=== PATIENT | female | born 1990 | race Caucasian/White ===

== ENCOUNTER → 2023-04-10 15:41 | Outpatient (BNVA) | payer BC, SELFPAY | PROVIDERS: Visit Provider Nurse Practitioner Women's Health | DX: Z12.4 Encounter for screening for malignant neoplasm of cervix (principal); Z13.0 Encounter for screening for diseases of the blood and blood-forming organs and certain disorders involving the immune mechanism; R68.89 Other general symptoms and signs; Z13.1 Encounter for screening for diabetes mellitus; Z13.228 Encounter for screening for other metabolic disorders; Z13.220 Encounter for screening for lipoid disorders; Z01.419 Encounter for gynecological examination (general) (routine) without abnormal findings | CPT/HCPCS: 80053; 80061; 83036; 84443; 85025; 87624 ==

== ENCOUNTER 2023-07-07 09:07 | Emergency (ER) | payer BC, SELFPAY ==
[2023-07-07] VITALS (7 sets, daily range): BP systolic 95–109; BP diastolic 63–73; PULSE 83–95; RESP 16; TEMP 36.8; O2SAT 96–98; BMI 24.0
--- NOTE | 2023-07-07 09:27 | XRR_ITS ---
PROCEDURE INFORMATION: Exam: XR Chest Exam date and time: 07/07/2023 9:33 AM Age: 32 years old Clinical indication: Cough and dyspnea; Additional info: Dyspnea/cough TECHNIQUE: Imaging protocol: Radiologic exam of the chest. Views: 1 view. COMPARISON: No relevant prior studies available. FINDINGS: Lungs: Unremarkable. No consolidation. Pleural spaces: Unremarkable. No pleural effusion. No pneumothorax. Heart/Mediastinum: Unremarkable. No cardiomegaly. Bones/joints: Unremarkable. XR/XR chest 1V portable [id number] IMPRESSION: The findings are normal.
--- NOTE | 2023-07-07 09:35 | W.ED.SYNCOPE ---
HPI - Syncope General: Chief Complaint: Syncope Stated Complaint: vomiting, passed out multiple times Time Seen by Provider: 07/07/23 09:26 Source: patient and family Mode of arrival: ambulatory History of Present Illness: 32-year-old female presents to the emergency room with complaints of nausea and vomiting and then a syncopal episode this morning when she first. She is unsure if she might be . She is not on any regular medication denies any medication on a temp cough cramps no abdominal pain she does have some scratching and bruising from playing with a rather large dog they have at home. No hematochezia melena hematemesis or coffee-ground emesis. Discomfort in the abdomen is diffuse no focal areas she has previously had an appendectomy no other abdominal surgeries MD complaint: loss of consciousness Associated symptoms: Deny abdominal pain, chest pain or fever(s) Treatments prior to arrival: none Review of Systems Const: Denies: fever(s) or chills Card: Denies: chest pain Resp: Denies: dyspnea GI: Denies: abdominal pain : Denies: dysuria, urinary frequency or urinary urgency Musc: Denies: neck pain or back pain Skin/Breast: Denies: rash PFSH ED PFSH: Medical History No pertinent past medical history neghx: htn,dm,thyroid,dvt/pe PCP: None Surgical History History of appendectomy Family History Father Hyperlipidemia Hypertension Stroke Grandfather Hyperlipidemia Hypertension Stroke Mother Hypertension Denies family history of Cervical cancer Ovarian cancer Prostate cancer Diabetes Heart disease Breast cancer Uterine cancer Thyroid disease Female Reproductive History: Date of last menstrual period: 06/14/23 Physical Exam Const: COMMON NORMALS: no acute distress GENERAL APPEARANCE: cooperative and comfortable ORIENTATION/CONSCIOUSNESS: Yes awake, Yes oriented to person, Yes oriented to place and Yes oriented to time HENMT: COMMON NORMALS: normocephalic, atraumatic and hearing grossly normal bilaterally HEAD & SCALP: normocephalic and atraumatic Resp: COMMON NORMALS: normal respiratory effort, No retractions, No use of accessory muscles and clear to auscultation bilaterally AUSCULTATION: clear to auscultation bilaterally Cardio: COMMON NORMALS: regular rate, regular rhythm and No murmurs present (Cardio) RATE: regular rate RHYTHM: regular rhythm GI: COMMON NORMALS: Soft to palpation and No hepatosplenomegaly present AUSCULTATION: Yes normoactive bowel sounds PALPATION: Yes Soft to palpation, No Tenderness to palpation present (GI), No Guarding due to palpation present (GI) and Yes No hepatosplenomegaly present Extremity: COMMON NORMALS: normal to inspection, capillary refill normal, no clubbing, cyanosis or edema, no calf tenderness and no pedal edema Neuro: SENSORIUM/ORIENTATION: Yes oriented to person, Yes oriented to place and Yes oriented to time Skin: COMMON NORMALS: no rashes or lesions noted GENERAL SKIN EXAM: no rashes or lesions noted Course Vital Signs: Vital signs: Vital Signs Temperature 98.3 F 07/07/23 09:15 Pulse Rate 90 07/07/23 12:41 Respiratory Rate 16 07/07/23 09:15 Blood Pressure 109/63 07/07/23 12:41 Pulse Oximetry 96 07/07/23 12:41 Oxygen Delivery Me thod Room Air 07/07/23 11:30 MDM - Syncope Medical Decision Making Improved with fluids. Discharge home clear liquid diet antiemetics as needed. Will check a COVID as well contact with results. Medical Records I reviewed the patient's medical records. Lab Data I reviewed the patient's lab results. 07/07/23 09:30 07/07/23 09:30 Radiology Impressions Chest X-Ray 07/07/23 09:27 IMPRESSION: The findings are normal. Laboratory Results WBC 18.90 10^3/uL (3.29-11.43) H 07/07/23 09:30 RBC 4.87 10^6/uL (3.85-5.65) 07/07/23 09:30 Hgb 13.50 g/dL (11.27-16.99) 07/07/23 09:30 Hct 40.5 % (36-47) 07/07/23 09:30 MCV 83.2 fl (85-98) L 07/07/23 09:30 MCH 27.7 pg (27-33) 07/07/23 09:30 MCHC 33.3 g/dL (30-55) 07/07/23 09:30 RDW 14.3 % (12.1-15.1) 07/07/23 09:30 Plt Count 278 10^3/cmm (157-399) 07/07/23 09:30 MPV 10.5 fL (7.4-10.4) H 07/07/23 09:30 Neut % (Auto) 95.4 % 07/07/23 09:30 Lymph % (Auto) 2.0 % 07/07/23 09:30 [place] % (Auto) 2.0 % 07/07/23 09:30 Eos % (Auto) 0.0 % 07/07/23 09:30 Baso % (Auto) 0.2 % 07/07/23 09:30 Neut # (Auto) 18.04 10^3/uL (1.8-7.7) H 07/07/23 09:30 Lymph # (Auto) 0.4 10^3/uL (0.8-4.8) L 07/07/23 09:30 [place] # (Auto) 0.4 10^3/uL (0.2-0.9) 07/07/23 09:30 Eos # (Auto) 0.0 10^3/uL (0.0-0.8) 07/07/23 09:30 Baso # (Auto) 0.0 10^3/uL (0.0-0.1) 07/07/23 09:30 Nucleated RBC % (auto) 0 % 07/07/23 09:30 Nucleated RBCs # 0.0 /100WBC 07/07/23 09:30 Sodium 135 mmol/L (136-145) L 07/07/23 09:30 Potassium 4.0 mmol/L (3.5-5.1) 07/07/23 09:30 Chloride 101 mmol/L (98-107) 07/07/23 09:30 Carbon Dioxide 24 mmol/L (22-29) 07/07/23 09:30 Anion Gap 14.0 (5-19) 07/07/23 09:30 BUN 11 mg/dL (6-20) 07/07/23 09:30 Creatinine 0.6 mg/dL (0.5-0.9) 07/07/23 09:30 GFR Calculation 115.1 mL/min (90-130) 07/07/23 09:30 Glucose 145 mg/dL (65-115) H 07/07/23 09:30 Calculated Osmolality 282 mOsm/kg (285-295) L 07/07/23 09:30 Calcium 9.2 mg/dL (8.5-10.5) 07/07/23 09:30 Magnesium 1.8 mg/dL (1.7-2.3) 07/07/23 09:30 Total Bilirubin 0.6 mg/dL (0.15-1.2) 07/07/23 09:30 AST 19 U/L (0-32) 07/07/23 09:30 ALT 14 U/L (0-33) 07/07/23 09:30 Alkaline Phosphatase 51 U/L (35-105) 07/07/23 09:30 Total Protein 7.0 g/dL (6.6-8.7) 07/07/23 09:30 Albumin 4.5 g/dL (3.5-5.2) 07/07/23 09:30 Globulin 2.5 g/dL (1.3-4.6) 07/07/23 09:30 HCG, Qual Negative (Negative) 07/07/23 09:30 Urine Color Yellow (Yellow) 07/07/23 11:35 Urine Appearance Clear (CLEAR) 07/07/23 11:35 Urine pH 8 (5-7) H 07/07/23 11:35 Ur Specific [place] 1.015 (1.005-1.030) 07/07/23 11:35 Urine Protein Neg (Negative) 07/07/23 11:35 Urine Glucose (UA) Norm (Normal) 07/07/23 11:35 Urine Ketones 1+ (Negative) H 07/07/23 11:35 Urine Blood Neg (Negative) 07/07/23 11:35 Urine Nitrate Negative (Negative) 07/07/23 11:35 Urine Bilirubin Neg (Negative) 07/07/23 11:35 Prot Sulfosalicylic Acd Negative (Negative) 07/07/23 11:35 Urine Urobilinogen Norm mg/dL (Negative) 07/07/23 11:35 Ur Leukocyte Esterase Negative (Negative) 07/07/23 11:35 All radiology interpretation(s) finalized by discharge Discharge Plan Discharge Patient Disposition: Home Clinical Impression: Orthostatic hypotension, Gastroenteritis Condition: Stable Prescriptions: New ondansetron HCl 4 mg tablet 4 mg PO Q6H PRN (Reason: nausea and vomiting) Qty: 20 0RF No Action Midol 500-25 mg tablet 1 tab PO Q6H PRN (Reason: Pain) acetaminophen 500 mg Tablet 1,000 mg PO Q6H PRN (Reason: Pain) Discharge Orders: Discharge ED (Routine); Ordered 07/07/23 Ordered By: Woody Miller Discharge Diet: Clear Liquid Discharge Activity: Increase activity as tolerated Patient Instructions: Opioid Safety, Pain Management Coding Level of Care Code ED Senior Mechanical Project Manager for Srinivas Ramos
[2023-07-07 09:41] LABS: Basophils % 0.2 %; Hematocrit 40.5 % (36-47); Lymphocytes # 0.4 10^3/uL (0.8-4.8); Mean Corpuscular HGB Conc 33.3 g/dL (30-55); Mean Corpuscular Hemoglobin 27.7 pg (27-33); Mean Corpuscular Volume 83.2 fl (85-98); Mean Platelet Volume 10.5 fL (7.4-10.4); Monocytes # 0.4 10^3/uL (0.2-0.9); Neutrophils # 18.04 10^3/uL (1.8-7.7); Neutrophils % 95.4 %; Nucleated Red Blood Cells % 0 %; Platelet Count 278 10^3/cmm (157-399); Red Blood Count 4.87 10^6/uL (3.85-5.65); Red Cell Distribution Width 14.3 % (12.1-15.1)
[2023-07-07 10:02] LABS: Alanine Aminotransferase 14 U/L (0-33); Albumin Level 4.5 g/dL (3.5-5.2); Alkaline Phosphatase 51 U/L (35-105); Aspartate Amino Transferase 19 U/L (0-32); Blood Urea Nitrogen 11 mg/dL (6-20); Calcium 9.2 mg/dL (8.5-10.5); Carbon Dioxide 24 mmol/L (22-29); Chloride 101 mmol/L (98-107); Globulin 2.5 g/dL (1.3-4.6); Glomerular Filtration Rate 115.1 mL/min (90-130); Glucose 145 mg/dL (65-115); Magnesium 1.8 mg/dL (1.7-2.3); Osmolality Calculated 282 mOsm/kg (285-295); Sodium 135 mmol/L (136-145); Total Bilirubin 0.6 mg/dL (0.15-1.2)
[2023-07-07] MEDS: sodium chloride 0.9% 1,000 ML 999 ML IV (10:03)
[2023-07-07 10:26] LABS: HCG, Serum Qual Negative (Negative)
[2023-07-07 11:44] LABS: Add Urine Microscopic? NO; Charge for UA Resulting for Rev
[2023-07-07 12:10] LABS: Bilirubin Urine Neg (Negative); Blood Urine Neg (Negative); Glucose Urine UA Norm (Normal); Ketones Urine 1+ (Negative); Leukocyte Esterase Urine Negative (Negative); Nitrate Urine Negative (Negative); Protein Urine Neg (Negative); Specific Gravity, Urine 1.015 (1.005-1.030); Sulfosalicylic Acid Urine Negative (Negative); Urine Appearance Clear (CLEAR); Urine Color Yellow (Yellow); Urobilinogen Urine Norm (Negative); pH Urine 8 (5-7)
[2023-07-07 14:43] LABS: Adenovirus Not Detected (NOT DETECT); Chlamydia Pneumoniae Not Detected (NOT DETECT); Coronavirus 229E,HKU1,NL63,OC4 Not Detected (NOT DETECT); Human Metapneumovirus Not Detected (NOT DETECT); Human Rhinovirus/Enterovirus Not Detected (NOT DETECT); Influenza A Not Detected (NOT DETECT); Influenza A H1 Not Detected (NOT DETECT); Influenza A H1-2009 Not Detected (NOT DETECT); Influenza A H3 Not Detected (NOT DETECT); Influenza B Not Detected (NOT DETECT); Mycoplasma Pneumoniae Not Detected (NOT DETECT); Parainfluenza Virus Type 1 Not Detected (NOT DETECT); Parainfluenza Virus Type 2 Not Detected (NOT DETECT); Parainfluenza Virus Type 3 Not Detected (NOT DETECT); Parainfluenza Virus Type 4 Not Detected (NOT DETECT); Respiratory Syncytial Virus A Not Detected (NOT DETECT); Respiratory Syncytial Virus B Not Detected (NOT DETECT); SARS-COV-2 Not Detected (NOT DETECT)
== END 2023-07-07 12:40 | disposition home or self-care (01) ==
PROVIDERS: Emergency Provider Family Medicine
DX: K52.9 Noninfective gastroenteritis and colitis, unspecified (principal); I95.1 Orthostatic hypotension
CPT/HCPCS: 71045; 80053; 81003; 83735; 84703; 85025; 87635; 96360; 96361; 99284; J7030

== ENCOUNTER → 2023-10-09 14:00 | Outpatient (BNVA) | payer BC, SELFPAY | PROVIDERS: Visit Provider Nurse Practitioner Women's Health | DX: N92.0 Excessive and frequent menstruation with regular cycle (principal) | CPT/HCPCS: 82306; 82607; 82746; 83036; 83550; 84439; 84443; 84702 ==

== ENCOUNTER → 2023-10-22 15:19 | Outpatient (BNVA) | payer BC, SELFPAY | PROVIDERS: Visit Provider Nurse Practitioner Women's Health | DX: N93.9 Abnormal uterine and vaginal bleeding, unspecified (principal); D25.9 Leiomyoma of uterus, unspecified; N88.8 Other specified noninflammatory disorders of cervix uteri; N83.291 Other ovarian cyst, right side | CPT/HCPCS: 76830 ==

== ENCOUNTER → 2023-11-10 10:49 | Outpatient (BNVA) | payer BC, SELFPAY | PROVIDERS: Visit Provider Nurse Practitioner Women's Health | DX: N92.0 Excessive and frequent menstruation with regular cycle (principal) | CPT/HCPCS: 82672; 83001; 83520; 84146 ==

== ENCOUNTER → 2023-11-20 11:29 | Outpatient (BNVA) | payer BC, SELFPAY | PROVIDERS: Visit Provider Nurse Practitioner Women's Health | DX: N92.0 Excessive and frequent menstruation with regular cycle (principal); D25.1 Intramural leiomyoma of uterus; D25.0 Submucous leiomyoma of uterus; R10.2 Pelvic and perineal pain | CPT/HCPCS: 85025 ==

== ENCOUNTER 2024-03-23 15:53 | Outpatient (CLI) | payer BC, SELFPAY ==
--- NOTE | 2024-03-23 16:00 | MR_ITS ---
WS: [id number] MRI PELVIS WITHOUT CONTRAST. COMPARISON: Transvaginal pelvic ultrasound 10/22/2023 Multiplanar, multisequence imaging is performed without contrast. History: Follow-up fibroid. Normal size uterus is anteverted. There is a low signal mass on all sequences centered in the mid venetie dani. Mass is displacing the endometrium. On several of the sequences there is fluid within the endome trium being displaced around this mass. On the recent ultrasound this appeared to be submucosal fibro id. On this examination this may be an endocavitary mass consistent with fibroid due to the displacem ent of the fluid. Intrauterine mass measures 3.1 x 3.1 x 3.5 cm. Signal is nearly homogeneous through out. The endometrium is distorted by the mass but does not appear to be enlarged or masslike. There is a small amount of free fluid in the cul-de-sac. Fluid extends to the RIGHT adnexa adjacent t o the ovary. RIGHT ovary measures 1.6 x 2.7 x 2.5 cm and contains several follicles. LEFT ovary is sl ightly enlarged containing a simple cyst. The entire cyst ovarian complex measures 4.0 x 2.5 x 4.9 cm . The cyst measures 4.0 x 2.1 x 5.0 cm. Cyst is new since the ultrasound of 10/22/2023. No adenopathy. Osseous structures are normal. MR/MR pelvis wo con* [id number] IMPRESSION: 1. Low signal mass in the central uterus distorting the endometrium. This is m ost consistent with a leiomyoma. Due to displacement of the endometrium I favor this is probably a submucosal fibroid measuring 3.1 x 3.1 x 3.5 cm. There is p otential for intracavitary fibroid. 2. Small amount of free fluid in the pelvis. 3. LEFT ovarian cyst 4.0 x 2.1 x 5.0 cm.
== END 2024-03-23 15:54 | disposition home or self-care (01) ==
LOC: RAD 15:54
PROVIDERS: Visit Provider Obstetrics & Gynecology
DX: D26.9 Other benign neoplasm of uterus, unspecified (principal); N83.202 Unspecified ovarian cyst, left side
CPT/HCPCS: 72195

== ENCOUNTER 2024-05-24 13:53 | Inpatient (IN) | payer OTHER, SELFPAY ==
--- NOTE | 2024-05-17 11:42 | P.ANESASSM_ITS ---
Pre-Anesthetic Assessment Height/Weight: Height 1.6 m Operation Date: 05/24/24 12:50 Proposed Procedures p Myomectomy 01812, D25.1(Not Applicable) - Turner Hanks MD Familial anesthetic complications: None Was Beta Tony taken within 24 hours: N/A Was Clonidine taken within 24 hours: N/A Social No alcohol and No tobacco Exam alert, oriented x 3, clear to auscultation bilaterally and regular rate & rhythm Airway Mallampati: Class II Dentition: other (missing tooth) Pulmonary Asthma (exercise induced) Anesthetic Plan ASA status: 2 Anesthesia: General Risk of > 500 ml blood loss (7ml/kg in children): No Medications/Allergies Home Medications Medication Instructions Recorded Confirmed Last Taken Type ibuprofen 800 mg tablet 800 mg PO Q8H PRN pain #60 tabs 01/28/24 05/17/24 05/17/24 Rx norethindrone acetate 5 mg tablet 5 mg PO DAILY 05/17/24 05/17/24 05/17/24 History Allergies Allergy/AdvReac Type Severity Reaction Status Date / Time No Known Allergies Allergy Unverified 01/28/24 08:14 [facility] Anesthesia Medical History No pertinent past medical history neghx: htn,dm,thyroid,dvt/pe PCP: None Surgical History History of appendectomy Family History Father Hyperlipidemia Hypertension Stroke Grandfather Hyperlipidemia Hypertension Stroke Mother Hypertension Denies family history of Cervical cancer Ovarian cancer Prostate cancer Diabetes Heart disease Breast cancer Uterine cancer Thyroid disease Social History Smoking and tobacco/nicotine status: never used tobacco/nicotine Data Anesthesia Cardiac Studies: No Data to Display
[2024-05-24] VITALS (13 sets, daily range): BP systolic 105–133; BP diastolic 59–90; PULSE 60–99; RESP 14–18; TEMP 36.1–36.9; O2SAT 98–100; BMI 25.7
--- NOTE | 2024-05-24 11:01 | W.PM.OPSUD ---
Surgery/Procedure H&P Update DATE OF PROCEDURE: May 24, 2024 DATE H&P PERFORMED: 05/16/24 H&P UPDATE INFORMATION: I have reviewed H&P completed within last 30 days, I have examined patient prior to procedure and No changes to prior documentation PREOP DIAGNOSIS: Uterine fibroid PLANNED PROCEDURE: Operation Date: 05/24/24 12:50 Proposed Procedures p Myomectomy 45861, D25.1(Not Applicable) - Turner Hanks MD
[2024-05-24 11:42] LABS: Basophils # 0.1 10^3/uL (0.0-0.1); Basophils % 1.7 %; Eosinophils # 0.1 10^3/uL (0.0-0.8); Eosinophils % 1.5 %; Hematocrit 22.8 % (36-47); Lymphocytes # 1.9 10^3/uL (0.8-4.8); Mean Corpuscular HGB Conc 26.8 g/dL (30-55); Mean Corpuscular Hemoglobin 17.7 pg (27-33); Mean Corpuscular Volume 66.1 fl (85-98); Monocytes # 0.3 10^3/uL (0.2-0.9); Monocytes % 6.5 %; Neutrophils # 2.45 10^3/uL (1.8-7.7); Neutrophils % 51.1 %; Nucleated Red Blood Cells % 0 %; Platelet Count 374 10^3/cmm (157-399); Red Blood Count 3.45 10^6/uL (3.85-5.65); Red Cell Distribution Width 15.5 % (12.1-15.1); White Blood Count 4.79 10^3/uL (3.29-11.43)
[2024-05-24] MEDS: scopolamine 1.5 Patch 1 PATCH TRANSDERMA (11:46)
[2024-05-24] MEDS: sodium chloride 0.9% 1,000 ML 30 ML IV (11:47)
[2024-05-24] MEDS: metroNIDAZOLE IV 500 MG/100 ML PREMIX 100 MG IV (11:52)
[2024-05-24 11:57] LABS: HCG, Serum Qual Negative (Negative)
[2024-05-24 12:01] LABS: Alanine Aminotransferase 8 U/L (0-33); Albumin Level 4.6 g/dL (3.5-5.2); Alkaline Phosphatase 42 U/L (35-105); Aspartate Amino Transferase 13 U/L (0-32); Blood Urea Nitrogen 8 mg/dL (6-20); Calcium 8.4 mg/dL (8.5-10.5); Carbon Dioxide 21 mmol/L (22-29); Chloride 105 mmol/L (98-107); Creatinine Clr Calc Pharmacy 103.2367; Globulin 2.6 g/dL (1.3-4.6); Glomerular Filtration Rate 95.8 mL/min (90-130); Glucose 90 mg/dL (65-115); Osmolality Calculated 284 mOsm/kg (285-295); Sodium 138 mmol/L (136-145); Total Bilirubin 0.4 mg/dL (0.15-1.2); Total Protein 7.2 g/dL (6.6-8.7)
--- NOTE | 2024-05-24 13:18 | SUR.PREOP ---
Patient's surgery scheduled for 05/24/24 being postponed until 05/25/24 due to HGB lab coming back critical at 6.1 and HCT at 22%. Patient states she has been symptomatic with high heart rate and shortness of breath on exertion for the last [address] Hanks and anesthesia aware, orders received from Dr. Hanks for transfusing 2 units of blood and admit patient to observation. Dr. Hanks states plan is to give patient 2 units of blood and recheck her CBC then assess level prior to procedure being done tomorrow. Patient is to be NPO after midnight tonight. Patient is understanding and agrees with plan, she is accompanied by life partner who is also agreeable.
--- NOTE | 2024-05-24 14:22 | SUR.PREOP ---
Patient transported to room 262. Report called to [facility]. Bhavya RN in room on arrival report also given to her. Patient taken by wheelchair. Patient alert and oriented, life partner with her. Iv in L AC intact. VSS.
[2024-05-24] MEDS: diphenhydrAMINE 25 mg Capsule PO (14:36)
[2024-05-24] MEDS: acetaminophen 500 mg Tablet 1000 MG PO (14:36)
[2024-05-24 20:40] LABS: Bilirubin Urine Negative (Negative); Blood Urine Negative (Negative); Glucose Urine UA Negative (Normal); Ketones Urine 2+ (Negative); Leukocyte Esterase Urine Negative (Negative); Nitrate Urine Negative (Negative); Protein Urine Negative (Negative); Specific Gravity, Urine 1.007 (1.005-1.030); Urine Appearance Clear (CLEAR); Urine Color Yellow (Yellow); Urobilinogen Urine 0.2 mg/dL (Negative)
[2024-05-24 20:43] LABS: Add Urine Microscopic? YES; Bacteria Urine None Seen /hpf; Hyaline Casts Urine 0.81 /lpf; RBC Urine 0-2 /hpf (0-2); Squamous Epithelial Cell Urine 0-5 /hpf (0-5); WBC Urine 0-5 /hpf (0-5)
[2024-05-24] MEDS: tranexamic acid 1,000 MG/100 ML PREMIX 600 MG IV (22:16)
[2024-05-25] VITALS (28 sets, daily range): BP systolic 100–135; BP diastolic 59–90; PULSE 51–85; RESP 15–20; TEMP 36.4–37.1; O2SAT 96–100
[2024-05-25 00:49] LABS: Hematocrit 29.7 % (36-47); Mean Corpuscular Hemoglobin 20.1 pg (27-33); Mean Corpuscular Volume 69.6 fl (85-98); Mean Platelet Volume 10.9 fL (7.4-10.4); Platelet Count 359 10^3/cmm (157-399); Red Blood Count 4.27 10^6/uL (3.85-5.65); Red Cell Distribution Width 18.4 % (12.1-15.1); White Blood Count 6.72 10^3/uL (3.29-11.43)
[2024-05-25 06:38] LABS: Hematocrit 30.7 % (36-47); Mean Corpuscular HGB Conc 30.3 g/dL (30-55); Mean Corpuscular Hemoglobin 21.9 pg (27-33); Mean Corpuscular Volume 72.4 fl (85-98); Mean Platelet Volume 10.8 fL (7.4-10.4); Platelet Count 309 10^3/cmm (157-399); Red Blood Count 4.24 10^6/uL (3.85-5.65); Red Cell Distribution Width 20.7 % (12.1-15.1); White Blood Count 7.43 10^3/uL (3.29-11.43)
--- NOTE | 2024-05-25 09:25 | P.PN_ITS ---
Subjective 2 Subjective: Mrs. Kim 33-year-old female with history of abnormal uterine bleeding uterine fibroid scheduled for myomectomy. Preop labs show patient with severe anemia surgery was postponed to give patient blood. Vitals/I&O/Wt Last Vital Signs Temp 98.7 F 05/25/24 07:46 Pulse 68 05/25/24 07:46 Resp 18 05/25/24 07:46 BP 114/63 05/25/24 07:46 Pulse Ox 98 05/25/24 07:46 O2 Del Method Room Air 05/25/24 07:46 05/24/24 05/25/24 05/25/24 22:59 06:59 14:59 Intake Total 1760 / 2310 350 / 2660 Balance 1760 / 2310 350 / 2660 Weight last 48 hrs Weight 68.946 kg Weight 65.771 kg Physical Exam 2 Const: COMMON NORMALS: no acute distress, average body habitus and patient oriented x3 GENERAL APPEARANCE: cooperative and well kempt HENMT: COMMON NORMALS: normocephalic and atraumatic HEAD & SCALP: n ormocephalic and atraumatic Neck/C-Spine: COMMON NORMALS: full ROM Chest: COMMONS NORMALS: normal inspection of the chest Resp: COMMON NORMALS: normal respiratory effort Cardio: COMMON NORMALS: regular rate and regular rhythm RATE: regular rate RHYTHM: regular rhythm GI: INSPECTION: Yes normal to inspection Neuro: COMMON NORMALS: patient oriented x3 Psych: APPEARANCE: Yes well kempt Data 05/25/24 06:31 05/24/24 11:20 A&P Assessment and plan (1) Uterine fibroid: Mrs. Kim 33-year-old female initially scheduled for myomectomy. The myomectomy was postponed for today due to severe anemia. Patient afebrile hemodynamically stable. Qualifiers: Uterine leiomyoma location: intramural and submucous Qualified Code(s): D25.1 - Intramural leiomyoma of uterus; D25.0 - Submucous leiomyoma of uterus (2) Heavy menses: Qualifiers: Menorrhagia type: with regular cycle Qualified Code(s): N92.0 - Excessive and frequent menstruation with regular cycle Plan Proceed with planned surgery Attestations 2 Medical Necessity Statement*: In my professional opinion per admitting diagnosis Coding Level of Care Code Acute Code for Chg Fwd Diagnoses Intramural and submucous leiomyoma of uterus D25.1; D25.0 Uterine leiomyoma location: intramural and submucous Menorrhagia with regular cycle N92.0 Menorrhagia type: with regular cycle
--- NOTE | 2024-05-25 10:21 | PC.CHAP ---
Pastoral Care Encounter/Spiritual Assessment Type of Contact [] Declined tentering machine feeder visit [] Patient/Family/Request visit [] Outpatient visit [] Follow-up visit [] Physician referral [] Code/Alert [x] Routine visit [] Staff referral [] Actively dying [] Patient sleeping [] Family support [] [] Out of room [] Palliative care [] [] Receiving care in room [] Pre-surgical visit [] Trauma [] Long length of stay [] ICU visit [] Other: Relational/Emotional Strength [x] Patient feels connected with others/family/visitors/staff [] Distress [] Loneliness/isolation [] Abandonment Spirituality of Patient [x] Person of Mackenzie [] Attends Taoism of their [place] [x] Believes in Prayer [] Reads Bible or Tenriism materials [] There are Spiritual issues to be addressed Marine Animal Trainer Interventions [x] Prayer [x] Active listening [x] Non-anxious presence [x] Spiritual/emotional support [] Crisis/trauma care [] Spiritual counseling [] Bereavement support [] Provided bereavement packet [] Provided Bible/devotional materials [] Provided toy/stuffed animal, coloring book to patient or family member [] Provided Communion [] Anointing/[place] [] Salvation [x] Completed spiritual assessment [] Other: Impact on Illness or Injury [] Angry [] Fearful [] Anxious [] Often cries [] Exhaustion [] Unable to work [] Unable to attend mu-ism [] Unable to walk/stand [] Unable to read [] Unable to drive [] Unable to eat/drink [] Unable to sleep [] Unable to be with family [] Patient intubated [] Other: Summary Time spent with patient 5 min
--- NOTE | 2024-05-25 11:15 | P.ANESUD_ITS ---
Pre-Anesthetic Update Pre-Anesthetic Assessment: Date of Surgery/Procedure: 05/25/24 Preop Renae gnosis: Uterine fibroid Proposed Procedure: Operation Date: 05/24/24 12:50 Proposed Procedures p Myomectomy 34300, D25.1(Not Applicable) - Turner Hanks MD Operation Date: 05/25/24 11:20 Proposed Procedures p Myomectomy(Not Applicable) - Turner Hanks MD Changes from Pre-Anesthetic Assessment: Procedure was postponed yesterday due to anemia. Hemoglobin 6.1 yesterday. Patient has received 4 units PRBCs. Hemoglobin 9.3 this a.m. patient states that she feels well Plan for general anesthesia Last Intake: Intake Last Liquid Date 05/24/24 Last Liquid Time 22:30 Last Solid Date 05/24/24 Last Solid Time 20:00 Labs Last 48hrs: Short CBC 05/24/24 05/25/24 05/25/24 Range/Units 11:20 00:37 06:31 WBC 4.79 6.72 7.43 (3.29-11.43) 10^ 3/uL Hgb 6.10 L* 8.60 L D 9.30 L (11.27-16.99) g/ dL Hct 22.8 L 29.7 L D 30.7 L (36-47) % MCV 66.1 L 69.6 L D 72.4 L (85-98) fl Plt Count 374 359 309 (157-399) 10^3/c mm Neut % (Auto) 51.1 % Neut # (Auto) 2.45 (1.8-7.7) 10^3/u L BMP 05/24/24 11:20 Sodium 138 Potassium 4.0 Chloride 105 Carbon Dioxide 21 L BUN 8 Creatinine 0.7 Glucose 90 Calcium 8.4 L Liver Function 05/24/24 Range/Units 11:20 Total Bilirubin 0.4 (0.15-1.2) mg/dL AST 13 (0-32) U/L ALT 8 (0-33) U/L Alkaline Phosphata se 42 (35-105) U/L Albumin 4.6 (3.5-5.2) g/dL Urine 05/24/24 Range/Units 14:00 Urine Color Yellow (Yellow) Urine Appearance Clear (CLEAR) Urine pH 6.0 (5-7) Ur Specific Gravit y 1.007 (1.005-1.030) Urine Protein Negative (Negative) Urine Glucose (UA) Negative (Normal) Urine Ketones 2+ H (Negative) Urine Nitrate Negative (Negative) Urine Bilirubin Negative (Negative) Ur Leukocyte Carmen ase Negative (Negative) Urine RBC 0-2 (0-2) /hpf Urine WBC 0-5 (0-5) /hpf Blood Bank 05/24/24 11:20 Blood Type O Positive Rho(D) Type Rh positive Antibody Screen Negative Vitals: Temperature 98.2 F 05/25/24 10:37 Temperature Source Oral 05/25/24 10:37 Pulse Rate 55 L 05/25/24 10:37 Pulse Rhythm Regular 05/25/24 10:21 Pulse Strength 3+ Normal 05/24/24 20:23 Respiratory Rate 17 05/25/24 10:37 Respiratory Effort Spontaneous 05/25/24 10:37 Respiratory Depth Normal 05/25/24 10:37 Respiratory Patter n Normal 05/25/24 10:37 Blood Pressure 112/74 05/25/24 10:37 Blood Pressure Negrita n 86 05/25/24 10:37 Blood Pressure Pos ition Semi Fowlers 05/25/24 10:37 Pulse Oximetry 100 05/25/24 10:37 Oxygen Delivery Me thod Room Air 05/25/24 07:46 Cardiac Studies: No Data to Display
--- NOTE | 2024-05-25 11:48 | W.PM.OPSUD ---
Surgery/Procedure H&P Update DATE OF PROCEDURE: May 25, 2024 DATE H&P PERFORMED: 05/16/24 H&P UPDATE INFORMATION: I have reviewed H&P completed within last 30 days, I have examined patient prior to procedure and Changes to prior documentation as noted here (Patient post blood transfusion, ) PREOP DIAGNOSIS: Uterine fibroid PLANNED PROCEDURE: Operation Date: 05/24/24 12:50 Proposed Procedures p Myomectomy 89056, D25.1(Not Applicable) - Turner Hanks MD Operation Date: 05/25/24 11:20 Proposed Procedures p Myomectomy(Not Applicable) - Turner Hanks MD
[2024-05-25] MEDS: metroNIDAZOLE IV 500 MG/100 ML PREMIX 100 MG IV (12:13)
[2024-05-25] MEDS: ceFAZolin 2,000 mg SDV 2000 MG IVP (12:13)
[2024-05-25] MEDS: BUPivacaine 0.5% INJ 30 mL INJECTION (13:01)
[2024-05-25] MEDS: BUPivacaine liposome 13.3 mg/mL SDV 20 mL 266 MG INFILTRATI (13:02)
[2024-05-25] MEDS: vasopressin 20 unit/mL INJ 10 UNIT INJECTION (13:03)
--- NOTE | 2024-05-25 14:00 | PM.OP ---
Operative Report Date of procedure: May 25, 2024 Pre-op diagnosis: Uterine fibroid Abnormal uterine bleeding Post blood transfusion Post-op diagnosis: same Procedure done: Laparotomy Myomectomy Specimens removed/disposition: Uterine fibroid Surgeon: Turner Hanks MD Estimated blood loss (mL): 5 IV fluids (mL): 900 Urine output (mL): 50 Procedure: After assuring informed consent, the patient was taken to the operating room and anesthesia was initiated. She was placed in the dorsal supine position with a left lateral tilt. The abdomen was prepped and draped in the usual sterile manner. A time-out procedure was performed. Preop antibiotics was administered. A Pfannenstiel skin incision was made with the scalpel and carried through to the underlying layer of fascia with the Bovie. The fascia was nicked in the midline and the incision extended laterally with the Berger scissors. The superior aspect of the fascial incision was then grasped with Skye clamps and elevated and the underlying rectus muscle dissected off bluntly. Attention was then turned to the inferior aspect of the incision which, in similar fashion, was grasped and tented up with Skye clamps and the rectus muscle dissected bluntly. The rectus muscles were then in the midline and the peritoneum identified, tented up and entered sharply with Metzenbaum scissors. The peritoneal incision was then extended superiorly and inferiorly with good visualization of the bladder. The Ion O retractor was then inserted. The abdominal contents were packed superiorly away from the operative site using the lap packs. At this time, the pelvic organs were noted. The uterus was grabs and the posterior fundal fibroid was identified. The area was infiltrated with vasopressin to control bleeding. A longitudinal incision was made on the posterior uterine wall. The fibroid was identified grasped with towel clamps and it was shelled out of the uterus without complication. Small area of endometrium was exposed it was closed with 3-0 Vicryl. The uterine valles was in layers with stratafix noelle suture. Uterine serosa was closed with 3-0 Vicryl suture in order baseball stitch manner obtain excellent hemostasis. Surgicel was placed over the incision. Rectus muscles were approximated with 2-0 Vicryl. The fascia was reapproximated with 0 Vicryl. Subcutaneous adipose tissue closed with 2-0 Vicryl. Subcutaneous layer was infiltrated with Exparel for pain management. The skin was closed using Insorb absorbable subcuticular ephraim. The patient tolerated the procedure well and was transferred to the recovery room in excellent condition. The patient returned to the floor for recovery.
--- NOTE | 2024-05-25 14:11 | P.BOP_ITS ---
Date of Procedure: 05/25/24 Surgeon: Turner Hanks MD Supervisory Forester(s): Procedure(s) performed: Abdominal myomectomy Findings of the procedure(s): Uterus fibroid approximately 4 cm in diameter Estimated blood loss: 5 Specimen(s) removed: Uterine fibroid Post-operative diagnosis: Fibroid uterus
--- NOTE | 2024-05-25 14:37 | ANE.PACU2 ---
Inpatient post-anesthesia follow up: Airway intact: Yes Vital signs: Temperature 98.0 F Pulse Rate 85 Respiratory Rate 18 Blood Pressure 127/90 Pulse Oximetry 96 Oxygen Delivery Me thod Room Air Oxygen Flow Rate 10 Fraction of Inspir ed Oxygen Hydration adequate: Yes Nausea and vomiting: No Pain level: 1 Mental status: Baseline
[2024-05-25] MEDS: ketorolac 30 mg/mL INJ IVP ×2 (15:22→21:43)
[2024-05-25] MEDS: dextrose 5%-lactated ringers 1,000 ML 125 ML IV (15:22)
[2024-05-25] MEDS: ondansetron 2 mg/ML SDV 2 mL 4 MG IVP (15:31)
[2024-05-25] MEDS: HYDROcodone-acetaminophen 5-325 mg Tablet PO (16:16)
[2024-05-25] MEDS: docusate sodium 100 mg Capsule PO (18:36)
[2024-05-25] MEDS: zolpidem 5 mg Tablet PO (23:14)
[2024-05-26] MEDS: dextrose 5%-lactated ringers 1,000 ML 125 ML IV (01:20)
[2024-05-26] MEDS: ketorolac 30 mg/mL INJ IVP ×2 (03:05→10:02)
[2024-05-26] MEDS: sodium chloride 0.9% 500 ML IV (03:15)
[2024-05-26 05:00] VITALS: BP 117/76; PULSE 55; RESP 18; TEMP 37.2
[2024-05-26] MEDS: HYDROcodone-acetaminophen 5-325 mg Tablet PO ×2 (06:46→17:11)
[2024-05-26 08:00] VITALS: RESP 18
[2024-05-26 09:06] LABS: Hematocrit 37.7 % (36-47); Mean Corpuscular HGB Conc 30.5 g/dL (30-55); Mean Corpuscular Hemoglobin 22.3 pg (27-33); Mean Corpuscular Volume 73.2 fl (85-98); Mean Platelet Volume 11.5 fL (7.4-10.4); Platelet Count 342 10^3/cmm (157-399); Red Blood Count 5.15 10^6/uL (3.85-5.65); Red Cell Distribution Width 21.2 % (12.1-15.1); White Blood Count 15.44 10^3/uL (3.29-11.43)
[2024-05-26] MEDS: docusate sodium 100 mg Capsule PO ×2 (10:03→17:11)
[2024-05-26 12:00] VITALS: RESP 18
--- NOTE | 2024-05-26 13:09 | P.PN_ITS ---
Subjective 2 Subjective: Mrs. Kim 33-year-old female status post myomectomy postoperative day 1. Denies any complication. Vitals/I&O/Wt Last Vital Signs Temp 98.0 F 05/27/24 10:31 Pulse 57 L 05/27/24 10:31 Resp 15 05/27/24 10:31 BP 114/65 05/27/24 10:31 Pulse Ox 96 05/27/24 10:31 O2 Del Method Room Air 05/27/24 10:31 O2 Flow Rate 10 05/25/24 14:20 Physical Exam 2 Narrative: GA: Alert and oriented ?3. HEENT: WNL. Heart: Regular rate and rhythm. Lungs: Clear to auscultation bilaterally. Abdomen: Bowel sounds present, nontender, minimal tenderness, incision clean and dry, no redness, pain or edema. 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 Extremities: No edema, no cyanosis, no calves pain. Urinary Catheter Management: Sutton: Cath Placed During This Visit: yes, but has since been removed by the nurse Reason for Continuing Indwelling Catheter: Decision to DC Catheter Urinary Catheter Date of Insertion: 05/25/24 Urinary Catheter Time of Insertion: 12:25 Date Urinary Catheter Removed: 05/26/24 Time Urinary Catheter Discontinued: 05:00 Data 05/26/24 08:40 05/24/24 11:20 A&P Assessment and plan (1) Status post myomectomy: Mrs. Kim is status post myomectomy postoperative day 1. She is afebrile and hemodynamically stable. Tolerating diet well. Ambulating without difficulty. Plan Continue postop observation. Attestations 2 Medical Necessity Statement*: In my professional opinion per admitting diagnosis Coding Level of Care Code Acute Code for Chg Fwd Diagnoses Status post myomectomy Z98.890
[2024-05-26] MEDS: ibuprofen 800 mg tablet PO ×2 (14:56→23:13)
[2024-05-26 16:00] VITALS: BP 110/72; PULSE 55; RESP 16; TEMP 36.9; O2SAT 98
[2024-05-26] MEDS: zolpidem 5 mg Tablet PO (22:12)
[2024-05-26 22:15] VITALS: BP 113/73; PULSE 62; RESP 16; TEMP 36.8; O2SAT 97
[2024-05-27] MEDS: HYDROcodone-acetaminophen 5-325 mg Tablet PO ×2 (00:30→07:12)
[2024-05-27] MEDS: simethicone 80 mg Chew PO (00:35)
[2024-05-27 03:00] VITALS: BP 108/62; PULSE 76; RESP 18; TEMP 36.8; O2SAT 95
[2024-05-27] MEDS: ibuprofen 800 mg tablet PO (09:21)
[2024-05-27] MEDS: docusate sodium 100 mg Capsule PO (09:21)
[2024-05-27 10:31] VITALS: BP 114/65; PULSE 57; RESP 15; TEMP 36.7; O2SAT 96
--- NOTE | 2024-05-27 13:04 | P.DS_ITS ---
Discharge Providers BOXING TRAINER Date of Admission: 05/24/24 13:53 Date of Discharge: 05/27/24 Attending Provider at Admission: Turner Hanks MD Attending Provider at Discharge: Turner Hanks MD Diagnoses at Discharge Discharge Diagnosis (1) Uterine fibroid: Status: Acute Qualifiers: Uterine leiomyoma location: intramural and submucous Qualified Code(s): D25.1 - Intramural leiomyoma of uterus; D25.0 - Submucous leiomyoma of uterus (2) Heavy menses: Status: Acute Qualifiers: Menorrhagia type: with regular cycle Qualified Code(s): N92.0 - Excessive and frequent menstruation with regular cycle Reason for Visit Reason for Visit: D25.1 Hospital Course Hospital Course Mrs. Kim 33-year-old female with a history of uterine fibroid. Admitted for planned myomectomy. The procedure was performed without complication. Postop observation has been uneventful. Tolerating diet well. Ambulating without difficulty. She is afebrile and hemodynamically stable postoperative day 2. She was counseled regarding pelvic rest for 6 weeks (no sex, no tampons, no vaginal douches). Return to the emergency room if any fever, increased bleeding or pain. Physical Exam Narrative: GA: Alert and oriented ?3. HEENT: WNL. Heart: Regular rate and rhythm. Lungs: Clear to auscultation bilaterally. Abdomen: Bowel sounds present, nontender, minimal tenderness, incision clean and dry, no redness, pain or edema. 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 Extremities: No edema, no cyanosis, no calves pain. Urinary Catheter Management: Sutton: Cath Placed During This Visit: yes, but has since been removed by the nurse Reason for Continuing Indwelling Catheter: Decision to DC Catheter Urinary Catheter Date of Insertion: 05/25/24 Urinary Catheter Time of Insertion: 12:25 Date Urinary Catheter Removed: 05/26/24 Time Urinary Catheter Discontinued: 05:00 History History History 0 Term 0 Miscarriages/Ectopic Living Children Discharge Data Studies Completed and Pending Pending at discharge Category Date Time Status Pathology: Surgical [PTH] Routine Pth 05/25/24 13:16 Received Laboratory Results WBC 15.44 10^3/uL (3.29-11.43) H 05/26/24 08:40 RBC 5.15 10^6/uL (3.85-5.65) 05/26/24 08:40 Hgb 11.50 g/dL (11.27-16.99) 05/26/24 08:40 Hct 37.7 % (36-47) 05/26/24 08:40 MCV 73.2 fl (85-98) L 05/26/24 08:40 MCH 22.3 pg (27-33) L 05/26/24 08:40 MCHC 30.5 g/dL (30-55) 05/26/24 08:40 RDW 21.2 % (12.1-15.1) H 05/26/24 08:40 Plt Count 342 10^3/cmm (157-399) 05/26/24 08:40 MPV 11.5 fL (7.4-10.4) H 05/26/24 08:40 Neut % (Auto) 51.1 % 05/24/24 11:20 Lymph % (Auto) 39.0 % 05/24/24 11:20 Schuyler % (Auto) 6.5 % 05/24/24 11:20 Eos % (Auto) 1.5 % 05/24/24 11:20 Baso % (Auto) 1.7 % 05/24/24 11:20 Neut # (Auto) 2.45 10^3/uL (1.8-7.7) 05/24/24 11:20 Lymph # (Auto) 1.9 10^3/uL (0.8-4.8) 05/24/24 11:20 Schuyler # (Auto) 0.3 10^3/uL (0.2-0.9) 05/24/24 11:20 Eos # (Auto) 0.1 10^3/uL (0.0-0.8) 05/24/24 11:20 Baso # (Auto) 0.1 10^3/uL (0.0-0.1) 05/24/24 11:20 Nucleated RBC % (auto) 0 % 05/24/24 11:20 Nucleated RBCs # 0.0 /100WBC 05/24/24 11:20 Sodium 138 mmol/L (136-145) 05/24/24 11:20 Potassium 4.0 mmol/L (3.5-5.1) 05/24/24 11:20 Chloride 105 mmol/L (98-107) 05/24/24 11:20 Carbon Dioxide 21 mmol/L (22-29) L 05/24/24 11:20 Anion Gap 16.0 (5-19) 05/24/24 11:20 BUN 8 mg/dL (6-20) 05/24/24 11:20 Creatinine 0.7 mg/dL (0.5-0.9) 05/24/24 11:20 GFR Calculation 95.8 mL/min (90-130) 05/24/24 11:20 Glucose 90 mg/dL (65-115) 05/24/24 11:20 Calculated Osmolality 284 mOsm/kg (285-295) L 05/24/24 11:20 Calcium 8.4 mg/dL (8.5-10.5) L 05/24/24 11:20 Total Bilirubin 0.4 mg/dL (0.15-1.2) 05/24/24 11:20 AST 13 U/L (0-32) 05/24/24 11:20 ALT 8 U/L (0-33) 05/24/24 11:20 Alkaline Phosphatase 42 U/L (35-105) 05/24/24 11:20 Total Protein 7.2 g/dL (6.6-8.7) 05/24/24 11:20 Albumin 4.6 g/dL (3.5-5.2) 05/24/24 11:20 Globulin 2.6 g/dL (1.3-4.6) 05/24/24 11:20 HCG, Qual Negative (Negative) 05/24/24 11:20 Urine Color Yellow (Yellow) 05/24/24 14:00 Urine Appearance Clear (CLEAR) 05/24/24 14:00 Urine pH 6.0 (5-7) 05/24/24 14:00 Ur Specific [place] 1.007 (1.005-1.030) 05/24/24 14:00 Urine Protein Negative (Negative) 05/24/24 14:00 Urine Glucose (UA) Negative (Normal) 05/24/24 14:00 Urine Ketones 2+ (Negative) H 05/24/24 14:00 Urine Blood Negative (Negative) 05/24/24 14:00 Urine Nitrate Negative (Negative) 05/24/24 14:00 Urine Bilirubin Negative (Negative) 05/24/24 14:00 Urine Urobilinogen 0.2 mg/dL (Negative) 05/24/24 14:00 Ur Leukocyte Esterase Negative (Negative) 05/24/24 14:00 Urine RBC 0-2 /hpf (0-2) 05/24/24 14:00 Urine WBC 0-5 /hpf (0-5) 05/24/24 14:00 Ur Squamous Epith Cells 0-5 /hpf (0-5) 05/24/24 14:00 Amorphous Sediment Not Reportable 05/24/24 14:00 Urine Bacteria None seen /hpf (NONE) 05/24/24 14:00 Hyaline Casts 0.81 /lpf 05/24/24 14:00 Urine HCG, Qual Cancelled 05/24/24 11:20 Blood Type O Positive 05/24/24 11:20 Rho(D) Type Rh positive 05/24/24 11:20 Antibody Screen Negative 05/24/24 11:20 Crossmatch See Detail 05/24/24 11:20 Vitals Last Vital Signs Temp 98.0 F 05/27/24 10:31 Pulse 57 L 05/27/24 10:31 Resp 15 05/27/24 10:31 BP 114/65 05/27/24 10:31 Pulse Ox 96 05/27/24 10:31 O2 Del Method Room Air 05/27/24 10:31 O2 Flow Rate 10 05/25/24 14:20 Results Labs OB ([facility]): Blood Type O Positive 05/24/24 Antibody Screen Negative 05/24/24 Hct 37.7 % (36-47) 05/26/24 Hgb 11.50 g/dL (11.27-16.99) 05/26/24 Rho(D) Type Rh positive 05/24/24 Plt Count 342 10^3/cmm (157-399) 05/26/24 TSH 0.28 uIU/mL (0.27-4.20) 10/09/23 Free T4 1.37 ng/dL (0.82-1.77) 10/09/23 Hemoglobin A1c 4.4 % (4.0-6.0) 10/09/23 Ser , Semi-Qnt 1.00 mIU/mL 10/09/23 HCG, Qual Negative (Negative) 05/24/24 Pap Smear Interpret See note 04/10/23 Discharge Plan Discharge Patient Disposition: Home Condition: Stable Prescriptions: New hydrocodone-acetaminophen 5-325 mg tablet 1 tab PO Q4H PRN (Reason: pain) Qty: 20 0RF acetaminophen 325 mg capsule 325 mg PO Q4H PRN (Reason: fever or pain) Qty: 60 0RF ibuprofen 800 mg tablet 800 mg PO TID PRN (Reason: pain) Qty: 60 0RF Continued ibuprofen 800 mg tablet 800 mg PO Q8H PRN (Reason: pain) Qty: 60 3RF norethindrone acetate 5 mg tablet 5 mg PO DAILY Rx Instructions: TAKE 1 TABLET BY MOUTH DAILY Discharge Orders: Discharge Order (Routine); Ordered 05/27/24 Ordered By: Turner Hanks Referrals: [facility] [Other] (The office of has been notified of your need for an appointment and they should call you to schedule. IF you have not heard from them in 2-3 business days. Please call to follow up. ) Turner Hanks MD [Physician] - 05/30/24 2:30 pm (* Your 6 week post op appointment is with Dr. Hanks on 05/30/2024 at 2:30pm) Rena Yates APN, WHNP [Nurse Practitioner] - 06/03/24 1:15 pm (* Your 2 week postop appointment is with Rena Yates on 06/03/2024. Please arrive at 1:15pm. ) Discharge Diet: Usual diet Discharge Activity: Limit activity as instructed Patient Instructions: Acute Wound Care (DC), Myomectomy (DC), Exploratory Laparotomy (DC), OB Abdominal Surgery - [facility], Opioid Safety, Post Anesthesia Care Activity Restrictions/Additional Instructions: 1. Please call [facility] on next working day to make your post-operative appointment in 2 weeks. 2. Please stay home until you come back to the clinic on first post- hospatilization check up. 3. Please follow instructions on your medications CAREFULLY. 4. If you have abdominal incision, do not cover it unless dressing is necessary because of drainage. OK to shower, but avoid bath. Leave steri-strips until they fall off. If they are still on one week after surgery, you may remove them. 5. If you had vaginal surgery or vaginal repair, Dr. Hanks may instruct you to take SITZ bath. 6. Yellow, blood tinged odorous vaginal discharge is usually normal after hysterectomy or vaginal surgeries. 7. No SEXUAL INTERCOURSE, tampons, or douches until you are completely released from the post-operative care. 8. Avoid constipation by eating right and maybe using some Metamucil or Milk of Magnesia. 9. All prescription refills are given during the working hours. Please do no wait till it runs out. Call the clinic at [phone] before your medication runs out. The clinic will get in touch with your doctor to prescribe medications if necessary. 10. Please remain within 40 mile radius from our hospital because emergencies do happen now and then during the post-operative period. 11. If you have stairs at home, take one step at a time slowly and minimize the number of trips. It helps to stay in one floor for the next few days. No lifting except what you can lift by one hand until you are released from the post-operative care. 12. Driving is discouraged until you are well healed. It may be 3-4 weeks before you feel strong enough to drive. You should be able to turn and look through the rear window without pain and you should be able to push the brake pedal very hard without pain before you drive. No fast rules, but SAFETY should be your primary concern. DO NOT drive if you are on sedating medications such as narcotics. 13. Call the clinic (during working hours) to make urgent appointment or go to the Emergency room, if any of the following occurs: i. Vaginal bleeding becomes heavy, more than a period. ii. Incision becomes red and sore, or drains pus. iii. Your TEMPERATURE is over 100.4F or you have chill. iv. IV site becomes red and swollen (a little ``knot?? is usually OK) v. Persistent nausea and vomiting vi. Persistent constipation or diarrhea vii. Rash or allergic reaction to medications. Discharge Attestations BOXING TRAINER Time Spent in Discharge Care*: greater than 30 min Coding Level of Care Code Acute Code for g Fwd Diagnoses Intramural and submucous leiomyoma of uterus D25.1; D25.0 Uterine leiomyoma location: intramural and submucous Menorrhagia with regular cycle N92.0 Menorrhagia type: with regular cycle
[2024-05-27 14:12] VITALS: BP 115/77; PULSE 58; RESP 16; TEMP 36.7; O2SAT 98
== END 2024-05-27 14:30 | disposition home or self-care (01) | DRG 743 ==
LOC: MEDSURG 14:26 → OBGYN 05-26 07:58 → MEDSURG 05-30 10:58
PROVIDERS: Admitting Provider Obstetrics & Gynecology; Visit Provider Obstetrics & Gynecology
PROC: 30233N1 Transfusion of Nonautologous Red Blood Cells into Peripheral Vein, Percutaneous Approach (ICD-10-PCS; principal; 2024-05-24 12:30)
PROC: 0UB90ZZ Excision of Uterus, Open Approach (ICD-10-PCS; principal; 2024-05-25 11:00)
DX: D25.1 Intramural leiomyoma of uterus (principal); D25.0 Submucous leiomyoma of uterus; N92.0 Excessive and frequent menstruation with regular cycle; D64.9 Anemia, unspecified
CPT/HCPCS: 36415; 36430; 51702; 80053; 81001; 84703; 85025; 85027; 86850; 86900; 86920; 88307; C9290; G0378; J0131; J0690; J1100; J1171; J1885; J2250; J2405; J2704; J2710; J3010; J3490; J7030; J7040; J7121; P9016; P9040